=== PATIENT | female | born 1980 | race Caucasian/White ===

== ENCOUNTER → 2017-07-31 | Outpatient (CLI) | payer BC | LOC: M RAD 11:22 | DX: R07.89 Other chest pain (principal); R05 Cough | CPT/HCPCS: 71046 ==

== ENCOUNTER 2017-10-22 12:05 | Emergency (ER) | payer BC | END 2017-10-22 16:32 | disposition home or self-care (01) | LOC: M ED 12:05 | DX: S39.012A Strain of muscle, fascia and tendon of lower back, initial encounter (principal); X50.1XXA Overexertion from prolonged static or awkward postures, initial encounter; Y92.89 Other specified places as the place of occurrence of the external cause; M54.5 Low back pain; G89.29 Other chronic pain; F17.210 Nicotine dependence, cigarettes, uncomplicated; Z88.1 Allergy status to other antibiotic agents; Z88.8 Allergy status to other drugs, medicaments and biological substances | CPT/HCPCS: 99282 ==

== ENCOUNTER → 2017-10-29 | Outpatient (CLI) | payer BC | LOC: M RAD 10:40 | DX: M51.36 Other intervertebral disc degeneration, lumbar region (principal); M25.78 Osteophyte, vertebrae | CPT/HCPCS: 72072 ==